=== PATIENT | male | born 1980 | race Caucasian/White ===

== ENCOUNTER 2016-10-09 10:43 | Emergency (ER) | payer OTHER | END 2016-10-09 12:08 | disposition home or self-care (01) | LOC: FER 10:43 | DX: T23.102A Burn of first degree of left hand, unspecified site, initial encounter (principal); M54.2 Cervicalgia; V49.40XA Driver injured in collision with unspecified motor vehicles in traffic accident, initial encounter; Y92.410 Unspecified street and highway as the place of occurrence of the external cause | CPT/HCPCS: 72040; 72072; 73030 ==